=== PATIENT | male | born 1965 | race African-American/Black ===

== ENCOUNTER → 2017-09-03 | Outpatient (CLI) | payer OTHER ==
[~2017-09-03] MED LIST: NORCO 5-325 TA1 EACH PO; ZOFRAN ODT4 MG PO
[2017-09-03 12:01] LABS: BUN 14 mg/dL (7-18); CREATININE 1.3 mg/dL (0.7-1.3)
[2017-09-03 13:59] LABS: TROPONIN-I < 0.04 ng/mL (<0.06)
== END ==
LOC: CAT 11:23
PROVIDERS: Family Medicine
DX: J81.1 Chronic pulmonary edema (principal)

== ENCOUNTER 2018-04-30 12:01 | Emergency (ER) | payer OTHER ==
[~2018-04-30] VITALS: Ht 185.4 cm; Wt 127.0 kg
[~2018-04-30 12:01] MED LIST changes: +COREG25 MG PO; +COUMADIN 4 MG TA4 M1 PO; +DIGOXIN250 MCG PO; +FENOFIBRATE160 MG PO; +GLUCOPHAGE XR750 MG PO; +LISINOPRIL20 MG PO; +NOVOLOG100 UNIT/1 SUBQ; +SPIRONOLACTONE25 MG PO; +TRESIBA FL100 UNIT/1 SUBQ; +ZOCOR20 MG PO
[2018-04-30] MEDS ORDERED: OSELB75 PO (12:37)
[2018-04-30 13:15] VITALS: BP 158/82
== END 2018-04-30 13:16 | disposition home or self-care (01) ==
LOC: ER 12:01
DX: J09.X2 Influenza due to identified novel influenza A virus with other respiratory manifestations (principal); I10 Essential (primary) hypertension; E78.00 Pure hypercholesterolemia, unspecified; E11.9 Type 2 diabetes mellitus without complications; Z79.4 Long term (current) use of insulin; F17.210 Nicotine dependence, cigarettes, uncomplicated; Z91.09 Other allergy status, other than to drugs and biological substances

== ENCOUNTER → 2019-02-22 | Outpatient (CLI) | payer OTHER ==
[~2019-02-22] MED LIST changes: +OSELB75 PO
--- NOTE | 2019-02-22 12:21 | 2DMMODE ---
[facility] [place] [address] 2 D/M-MODE ECHOCARDIOGRAM Name: SHILPI MENA Room #: REG [facility]#: [id number] Admission: 02/22/19 Attend Phys: Bartolo Johnson Discharge: Date of : 65 Report #: [id number] THIS REPORT FOR: //name// APPROVED REPORT Study performed: 02/22/2019 10:28:13 EXAM: Comprehensive 2D, Doppler, and color-flow Echocardiogram Patient Location: Out-Patient Status: routine BSA: 2.46 HR: 95 bpm BP: 144/86 mmHg Rhythm: NSR Other Information Study Quality: Adequate Indications Cardiomyopathy. Hx: HTN, HLP, DM. 2D Dimensions RVDd: 40.91 mm IVSd: 14.00 (7-11mm) LVOT Diam: 23.41 (18-24mm) LVDd: 62.07 mm PWd: 14.00 (7-11mm) Ascending Ao: 32.92 (22-36mm) LVDs: 50.24 (25-40mm) Aortic Root: 31.65 mm Volumes Left Atrial Volume (Systole) Single Plane 4CH: 102.38 mL Single Plane 2CH: 100.88 mL LA ESV Index: 45.00 mL/m2 Aortic Valve AoV Peak Scar.: 1.14 m/s AO Peak Gr.: 5.21 mmHg LVOT Max P.98 mmHg LVOT Max V: 0.70 m/s NEELA Vmax: 2.65 cm2 Mitral Valve MV Decel. Time: 163.03 ms MV E Max Scar.: 1.05 m/s [facility] [address] [place] [address] 2 D/M-MODE ECHOCARDIOGRAM Name: SHILPI MENA Room #: REG [facility]#: [id number] Admission: 02/22/19 Attend Phys: Bartolo Johnson Discharge: Date of : 65 Report #: [id number] Pulmonary Valve PV Peak Scar.: 0.84 m/s PV Peak Gr.: 2.85 mmHg Tricuspid Valve TR Peak Scar.: 2.00 m/s RAP Estimate: 5.00 mmHg TR Peak Gr.: 16.00 mmHg PA Pressure: 25.00 mmHg Left Ventricle Left ventricle is moderately dilated. Moderate concentric left ventricular hypertrophy. Left ventricular systolic function is moderately decreased. LVEF is 35-40%. This study is not technically sufficient to allow evaluation of the LV diastolic function. Right Ventricle The right ventricle is normal size. The right ventricular systolic function is normal. Atria Left atrium is severely dilated. The right atrium size is normal. Aortic Valve The aortic valve is normal in structure. Trace aortic regurgitation. There is no aortic valvular stenosis. Mitral Valve The mitral valve is normal in structure. Moderate to severe mitral regurgitation Tricuspid Valve The tricuspid valve is normal in structure. Trace tricuspid regurgitation. Estimated PAP is 25mmHg. Pulmonic Valve The pulmonary valve is normal in structure. Trace pulmonic regurgitation. Great Vessels The aortic root is normal in size. The ascending aorta is normal in size. IVC is normal in size and collapses >50% with inspiration. Pericardium There is no pericardial effusion. [facility] [address] [place] [address] 2 D/M-MODE ECHOCARDIOGRAM Name: MENASHILPI Room #: REG [facility]#: [id number] Admission: 02/22/19 Attend Phys: Bartolo Johnson Discharge: Date of : 65 Report #: [id number] <Conclusion> Left ventricle is moderately dilated. LVEF is 35-40%. The right ventricle is normal size. Left atrium is severely dilated. The aortic valve is normal in structure. Trace aortic regurgitation. The mitral valve is normal in structure. Moderate to severe mitral regurgitation The tricuspid valve is normal in structure. Trace tricuspid regurgitation. Estimated PAP is 25mmHg. The pulmonary valve is normal in structure. Trace pulmonic regurgitation. There is no pericardial effusion. <ELECTRONICALLY SIGNED> By: Bartolo Lopez MD 02/22/19 1221 1221 1221 Bartolo Lopez MD /INF
== END ==
LOC: CV 10:15
DX: I34.0 Nonrheumatic mitral (valve) insufficiency (principal); I42.9 Cardiomyopathy, unspecified; E78.5 Hyperlipidemia, unspecified; E11.9 Type 2 diabetes mellitus without complications; I11.9 Hypertensive heart disease without heart failure

== ENCOUNTER → 2020-04-03 | Outpatient (CLI) | payer OTHER | LOC: SJCVCIMAG 07:35 | PROVIDERS: ATTEND Family Medicine | DX: I08.8 Other rheumatic multiple valve diseases (principal); Z79.899 Other long term (current) drug therapy ==

== ENCOUNTER → 2021-04-02 | Outpatient (CLI) | payer OTHER | LOC: SJCVCIMAG 07:34 | PROVIDERS: ATTEND Internal Medicine | DX: I34.0 Nonrheumatic mitral (valve) insufficiency (principal); R94.31 Abnormal electrocardiogram [ECG] [EKG]; R06.00 Dyspnea, unspecified; I42.9 Cardiomyopathy, unspecified; I11.9 Hypertensive heart disease without heart failure ==

== ENCOUNTER → 2021-05-22 | Outpatient (CLI) | payer OTHER ==
[~2021-05-22] VITALS: Ht 185.4 cm; Wt 123.8 kg
[~2021-05-22] MED LIST changes: +FISH OIL 1,001000 M3 PO; +LANTUS SUBQ; -LISINOPRIL20 MG PO; +PRINIVIL40 MG PO; +ROSUVASTATIN CA20 MG PO; +SILDENAFIL CIT100 MG PO
[2021-05-22 08:32] VITALS: BP 159/79
[2021-05-22 08:51] LABS: HEMATOCRIT 35.6 % (42.0-52.0); HEMOGLOBIN 11.5 gm/dL (14.0-18.0); MCH 28.5 pg (26.0-34.0); MCHC 32.3 g/dL (28.0-37.0); MCV 88.2 fL (80.0-100.0); RBC 4.03 mil/uL (4.50-6.00); RDW 15.3 % (10.5-14.5); WBC 6.8 thou/uL (4.0-11.0)
[2021-05-22 09:08] LABS: CREATININE 1.2 mg/dL (0.7-1.3); POTASSIUM 3.8 mmol/L (3.5-5.1)
--- NOTE | 2021-05-22 09:50 | EKG ---
[place] [address] [facility] [place] [address] ELECTROCARDIOGRAM REPORT Name: SHILPI MENA [facility] [id number] Admission: 05/22/21 Attend Phys: Bartolo Lopez Discharge: Date of : 65 Report #: [id number] [facility] Test Date: 2021-05-22 Test Time: 08:34:52 Pat Name: SHILPI MENA Department: Room: Gender: Home Health Scheduler: [facility] : 1965 Requested By: Bartolo Lopez Order Number: [id number] MD: Ed Mcmullen Measurements Intervals [place] Rate: 77 P: 58 NE: 234 QRS: 18 QRSD: 107 T: 3 QT: 369 QTc: 418 Interpretive Statements Sinus rhythm Prolonged NE interval Probable left atrial enlargement Borderline T wave abnormalities Compared to ECG 11/24/2017 08:44:41 No significant changes Electronically Signed On 05-22-2021 9:49:42 FIXED INCOME ANALYST by Ed Mcmullen [email or web address] <ELECTRONICALLY SIGNED> By: Ed Mcmullen MD, [facility] 05/22/21 0949 D: 01/833 3 Ed Mcmullen MD, FACC /EPI
--- NOTE | 2021-05-26 10:02 | CATHLAB ---
[facility] [place] [address] INVASIVE PROCEDURE REPORT Name: SHILPI MENA Room #: REG ALPHON[facility] Whitt[facility]rekDemarioDerek#: [id number] Admission: 05/22/21 Attend Phys: Bartolo Lopez Discharge: Date of : 65 Report #: [id number] THIS REPORT FOR: cc: Porter Krueger MD, Neal A. MD Lammoglia, Francisco J. MD ~ APPROVED REPORT Study performed: 05/22/2021 08:53:32 Patient Details Patient Status: Out-Patient Room #: The patient is a 56 year-old male Event Personnel Bartolo Lopez Speed Winder, Dorothy Valencia RN RN, Saranya Lerner Partnoy, Nancy RTR, [employer]ENDER TREATMENT PROFESSIONAL Monitor Procedures Performed Art Access - R femoral artery* Yobany Access - R femoral vein Right and Left Heart Cath w/or w/o Coronarie [id number] [facility] 88339 Initial Mod Sed Same Phys/QHP Gr [id number] 91121 Mod Sed Same Phys/QHP Ea 801902 Hemostasis with Manual pressure, supervision of conscious sedation Indication Dyspnea, Positive stress test Procedure Narrative The Right Groin^ was infiltrated with 1% Lidocaine subcutaneous anesthesia. A PINNACLE 4FR Sheath #[id number] sheath was inserted into the RFA. Coronary angiography was performed using coronary diagnostic catheters. The right coronary system was accessed and visualized with a JR4 catheter. The left coronary system was accessed and visualized with a JL4 catheter. The left ventricle was accessed and visualized with a ANGLED PIGTAIL catheter. Left ventricular/Aortic Valve gradient assessed via catheter pullback. Hemostasis was obtained with manual pressure following sheath removal without any complications. The patient tolerated the procedure well and there were no complications associated with the procedure. There was no hematoma. Intraoperative Conscious Sedation Sedation start time: 10:34 Case end Time: [facility] [employer] [address] [place] [address] INVASIVE PROCEDURE REPORT Name: SHILPI MENA Room #: REG Romina#: [id number] Admission: 05/22/21 Attend Phys: Bartolo Johnson Discharge: Date of : 65 Report #: [id number] 11:21 Versed 3 mg Fluoro Time: 4.20 minutes Dose: DAP 8633.80 cGycm2 1058 mGy Contrast Type and Amount: Omnipaque 40 ml Coronary Angiography The patient's coronary anatomy is right dominant. Diagnostic Cath Left Main Large-caliber vessel normal origin bifurcates left anterior single circumflex. Mild luminal irregularities are noted a mild plaquing which is not flow-limiting LAD Large-caliber vessel type III vessel which courses in the interventricular sulcus. The vessel gives rise to septal and diagonal branches as it tapers towards the apex and terminates a small bifurcating vessel. Irregularities of 30% or less are noted throughout its course Diagonal 1 Small caliber trifurcating branch coursing along the anterolateral wall with mild irregularities no high-grade lesion present Circumflex Large-caliber nondominant vessel coursing the AV groove giving rise to a large branch. The circumflex proper continues posteriorly is a small caliber vessel. The first marginal comes off early and is a moderate caliber vessel with luminal irregularities and nonobstructive plaquing. 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 Mild intraluminal plaquing in the proximal and distal portion are noted which are not flow-limiting R PDA Small caliber vessel significant high-grade lesion Left Ventriculography Left Ventriculography was not performed. Hemodynamics The right atrial mean pressure is 17 mmHg. The right ventricular pressure is 59/14 mmHg. The pulmonary artery pressure is 58/28 mmHg [facility] [address] [place] [address] INVASIVE PROCEDURE REPORT Name: SHILPI MENA Room #: REG CL Christo#: [id number] Admission: 05/22/21 Attend Phys: Bartolo Johnson Discharge: Date of : 65 Report #: [id number] with a mean of 41 mmHg. The mean pulmonary capillary wedge pressure is 25 mmHg. The aortic pressure is 141/81 mmHg with a mean of 106 mmHg. The left ventricular pressure is 144/17 mmHg with a mean of mmHg. The left ventricular end diastolic pressure is 35 mmHg. The cardiac output using thermo method is 5.53 L/min. The cardiac index using thermo method is 2.25 L/min/m2. Conclusion 1. Mild coronary disease with less than 30% diffuse plaquing 2. Anomalous right coronary artery origin 3. Normal hemodynamic Recommendations Cardiac Risk Reduction Program Medical Therapy <ELECTRONICALLY SIGNED> By: Bartolo Lopez MD 05/26/21 1002 1002 1002 Bartolo Lopez MD /INF
== END | disposition home or self-care (01) ==
LOC: CATH 07:44
PROVIDERS: ATTEND Internal Medicine
DX: R94.39 Abnormal result of other cardiovascular function study (principal); I25.10 Atherosclerotic heart disease of native coronary artery without angina pectoris; R07.9 Chest pain, unspecified; I10 Essential (primary) hypertension; E11.9 Type 2 diabetes mellitus without complications; E78.5 Hyperlipidemia, unspecified; F17.210 Nicotine dependence, cigarettes, uncomplicated; Z98.890 Other specified postprocedural states; Z79.899 Other long term (current) drug therapy; Z79.4 Long term (current) use of insulin